=== PATIENT | female | born 1970 | race Caucasian/White ===

== ENCOUNTER 2018-02-10 08:49 | Emergency (ER) | payer SELFPAY ==
[2018-02-10 08:56] VITALS: BP 125/82; PULSE 95; RESP 32; TEMP 36.4; O2SAT 98; BMI 20.9
[2018-02-10] MEDS: METOCLOPRAMIDE 10 MG/2 ML INJ IV (09:10)
[2018-02-10] MEDS: KETOROLAC 60 MG/2 ML VIAL 15 MG IV (09:10)
[2018-02-10] MEDS: diphenhydrAMINE 50 MG/ML VIAL 25 MG IV (09:10)
[2018-02-10] MEDS: SODIUM CHLORIDE 0.9% 1,000 ML 1000 ML IV (09:10)
[2018-02-10] MEDS: DEXAMETHASONE 10 MG/ML VIAL IV (09:11)
[2018-02-10 10:01] VITALS: BP 101/52; PULSE 58; RESP 14; O2SAT 96
--- NOTE | 2018-02-10 10:27 | ED_ITS ---
HPI - Headache General Chief Complaint: Headache Stated Complaint: MIGRAINE Time Seen by Provider: 02/10/18 08:51 Source: patient Mode of arrival: ambulatory Limitations: no limitations History of Present Illness HPI Narrative: A 47-year-old female with extensive history of weekly migraines presents to the emergency department with significant other in chief complaint of terrible headache with vomiting since last night. She states this is more intense than normal and a frontal headache as opposed to temporal which most of her migraines are. She denies provocation, palliation or radiation of her pain. She denies associated symptoms such as blurred vision or focal findings such as numbness, tingling or weakness. She denies any recent injuries or exposure to chemicals. She denies the use of any blood thinners. She does mention that historically she would consume up to 20 cups of coffee daily and after discussion with her primary care provider decided to essentially go cold turkey about a week ago, though she still consumes maybe 3 cups daily. Since then she has had increasing frequency in her headaches and now today's event. MD Complaint: headache and migraine Onset (ago): hour(s) Onset description: gradual Location: frontal Severity: severe Severity scale (1-10): 9 Quality: aching, throbbing, steady and squeezing Relieving factors: nothing Exacerbating factors: none Associated symptoms: nausea and vomiting Related Data Previous Rx's Medication Instructions Recorded ondansetron [Zofran ODT] 4 mg PO Q6H PRN #14 tab 02/10/18 Allergies Allergy/AdvReac Type Severity Reaction Status Date / Time No Known Drug Allergies Allergy Verified 02/10/18 09:06 Review of Systems Review of Systems All systems reviewed & are unremarkable except as noted in HPI and below Constitutional Denies chills, Denies fever(s), Reports headache(s), Denies lethargy and Denies weakness Eyes Denies change in vision, Denies eye discharge, Denies irritation and Denies loss of vision ENT Ears, Nose, Mouth, and Throat: Denies change in voice, Reports headache(s), Denies neck pain and Denies sore throat Cardiovascular Denies chest pain, Denies irregular heart rhythm, Denies lightheadedness, Denies palpitations, Denies dyspnea, Denies dyspnea on exertion and Denies orthopnea Respiratory Denies cough, Denies dyspnea, Denies dyspnea on exertion and Denies wheezing Gastrointestinal Gastrointestinal: Denies abdominal pain, Denies change in bowel habits, Denies diarrhea, Reports nausea and Reports vomiting Genitourinary Denies hematuria, Denies flank pain, Denies urinary incontinence and Denies urinary urgency Musculoskeletal Denies neck pain Integumentary/Breasts Denies pruritus, Denies erythema, Denies rash and Denies wounds Neurologic Denies confusion, Reports headache(s), Denies loss of vision and Denies weakness Psychiatric Denies anxiety, Denies confusion, Denies depression, Denies homicidal ideation and Denies suicidal ideation Endocrine Denies palpitations Hematologic/Lymphatic Denies easy bruising Allergic/Immunologic Denies wheezing PFSH Social History Smoking Status: Current every day smoker Exam Narrative Exam Narrative: 39-year-old female in obvious distress, crying and clutching the front of her head, holding an emesis bag in her opposite hand Initial Vital Signs Initial Vital Signs: Vital Signs Temperature 97.6 F 02/10/18 08:56 Pulse Rate 95 H 02/10/18 08:56 Respiratory Rate 32 H 02/10/18 08:56 Blood Pressure 125/82 H 02/10/18 08:56 Pulse Oximetry 98 02/10/18 08:56 Const General: cooperative, well developed and acute distress Nutritional Appearance: thin Orientation: alert, awake, oriented x3 and not confused [facility] Head: normocephalic and atraumatic Ears: external ears normal and TM's normal bilaterally Nose: external nose normal and No nasal discharge Face and sinus: sinuses nontender, face symmetric, no sinus tenderness and No dry mucous membranes Mouth: oral mucosae normal and moist mucous membranes Teeth and gingiva: dentition normal Throat: tonsils normal and uvula midline Neck Neck: normal visual inspection, trachea midline, No lymphadenopathy, No midline deformity and No JVD Lymphatic: No lymphedema Resp Effort & Inspection: normal respiratory effort, able to speak in complete sentences, no respiratory distress and no use of accessory muscles Auscultation: clear to auscultation bilaterally, no rales, no rhonchi and no wheezes GI Inspection: non-distended Palpation: soft, no hepatosplenomegaly, No guarding, No pulsatile mass and No tender Auscultation: normal bowel sounds Back/Spine/Pelvis Back: No CVA tenderness Cervical Spine: cervical ROM normal and No pain with cervical ROM Thoracic/Lumbar Spine: thoracic and lumbar spine normal to inspection Skin General: no rashes or lesions noted, No jaundice and No petechiae Neuro General: alert, oriented x3, gait normal and no focal motor deficits Speech: speech normal Gait: normal gait Motor: muscle tone normal throughout Sensory Exam: no sensory deficits noted Other: NIH Stroke Scale 1a. LOC: Patient is alert and keenly responsive (0) 1b. LOC Questions: Patient answers both LOC questions accurately (0) 1c. LOC Commands: Patient performs both tasks correctly (0) 2. Best Gaze: Normal (0) 3. Visual: No visual loss (0) 4. Facial palsy: Normal symmetrical movements (0) 5. Motor arm: No drift (0) 6. Motor leg: No drift (0) 7. Limb ataxia: Absent (0) 8. Sensory: Normal (0) 9. Best language: No aphasia; normal (0) 10. Dysarthria: Normal (0) 11. Extinction and inattention: No abnormality (0) NIHSS: 0 Course Orders Ordered: Discontinued Medications Dexamethasone (Decadron) 10 mg IV NOW ONE Stop: 02/10/18 09:00 Last Admin: 02/10/18 09:11 Dose: 10 mg Diphenhydramine HCl (Benadryl) 25 mg IV NOW ONE Stop: 02/10/18 09:00 Last Admin: 02/10/18 09:10 Dose: 25 mg Sodium Chloride (Normal Saline 0.9%) 1,000 mls @ 1,000 mls/hr IV BOLUS ONE Stop: 02/10/18 09:58 Last Infusion: 02/10/18 10:30 Dose: 0 mls/hr Admin: 02/10/18 09:10 Dose: 1,000 mls/hr Ketorolac Tromethamine (Toradol) 15 mg IV NOW ONE Stop: 02/10/18 09:00 Last Admin: 02/10/18 09:10 Dose: 15 mg Metoclopramide HCl (Reglan) 10 mg IV NOW ONE Stop: 02/10/18 09:00 Last Admin: 02/10/18 09:10 Dose: 10 mg Reevaluation(s) Reevaluation #1: Tremendous relief after above-stated medications. Time: 10:26 Vital Signs - 8 hr 02/10/18 08:56 02/10/18 10:01 Temperature 97.6 F Pulse Rate 95 H 58 L Respiratory Rate 32 H 14 Blood Pressure 125/82 H Blood Pressure [Left Arm] 101/52 L Pulse Oximetry 98 96 MDM - Headache Differential Diagnosis Differential diagnosis: Likely migraine, tension headache, subarachnoid hemorrhage, headache, meningitis, sinusitis and postconcussion syndrome Discharge Plan Departure Patient Disposition: Home, Self-Care Clinical Impression: Headache Discharge Date/Time: 02/10/18 10:44 Interventions: ED Discharge Assessment Last Done: 02/10/18 10:42 Instructions: DI for Headache Activity Restrictions/Additional Instructions: *You have been diagnosed with [ headache, likely due to caffeine withdrawal and dehydration ] *What to do: *Take medications as directed *Follow up with your primary care provider in 2-3 days *Return to ER if you should have any new, worsening or concerning symptoms Prescriptions: New ondansetron [Zofran ODT] 4 mg tablet,disintegrating 4 mg PO Q6H PRN (Reason: nausea and vomiting) Qty: 14 RF: 0
== END 2018-02-10 10:44 | disposition home or self-care (01) ==
PROVIDERS: Emergency Provider Emergency Medicine
DX: R51 Headache (principal)
CPT/HCPCS: 36591; 82962; 96361; 96374; 96375; 99283; 99284; J1100; J1200; J1885; J2765